=== PATIENT | male | born 1995 ===

== ENCOUNTER 2018-04-29 09:35 | Emergency (ER) | payer MEDICAID ==
[2018-04-29 10:13] VITALS: BP 130/78; PULSE 82; RESP 18; TEMP 99.2; O2SAT 99
--- NOTE | 2018-04-29 10:26 | C.PDOC ---
History Of Present Illness 22 y/o male presents to the ER complaining of right groin pain and swelling which has been present for the past 4 days. Patient states that he was concerned he might have a hernia. Patient denies having fever,chills, abdominal pain, and urinary symptoms. Time Seen by Provider: 04/29/18 09:50 Chief Complaint (Nursing): Abnormal Skin Integrity History Per: Patient History/Exam Limitations: no limitations Onset/Duration Of Symptoms: Days Current Symptoms Are (Timing): Still Present Severity: Moderate Past Medical History Reviewed: Historical Data, Nursing Documentation, Vital Signs Vital Signs: Last Vital Signs Temp 99.2 F 04/29/18 10:00 Pulse 82 04/29/18 10:00 Resp 18 04/29/18 10:00 BP 130/78 04/29/18 10:00 Pulse Ox 99 04/29/18 10:00 - Medical History PMH: No Chronic Diseases Surgical History: No Surg Hx Family History: States: No Known Family Hx - Social History Hx Tobacco Use: No Hx Alcohol Use: Yes Hx Substance Use: No - Immunization History Hx Tetanus Toxoid Vaccination: No Hx Influenza Vaccination: No Hx Pneumococcal Vaccination: No Review Of Systems Except As Marked, All Systems Reviewed And Found Negative. Constitutional: Negative for: Fever, Chills Genitourinary: Positive for: Other (right groin pain and swelling) Skin: Positive for: Other (redness swelling right groin) Physical Exam - Physical Exam Appears: Non-toxic, No Acute Distress Skin: Normal Color, Warm, Dry, Other (abrasion and erythema to right groin) Head: Atraumatic, Normacephalic Eye(s): bilateral: Normal Inspection Nose: Normal Oral Mucosa: Moist Neck: Supple Chest: Symmetrical Cardiovascular: Rhythm Regular Respiratory: Normal Breath Sounds, No Rales, No Rhonchi, No Wheezing Gastrointestinal/Abdominal: Normal Exam, Soft, No Tenderness, No Guarding, No Rebound Extremity: Normal ROM, Swelling (swelling to right groin) Neurological/Psych: Oriented x3, Normal Speech Gait: Steady ED Course And Treatment O2 Sat by Pulse Oximetry: 99 (RA) Pulse Ox Interpretation: Normal Progress Note: Treated with keflex 500 mg PO. In no distress, discharged in stable condition Reassessment Condition: Unchanged Medical Decision Making Medical Decision Making: Plan: --Keflex PO Updates: Patient has been discharged and instructed to follow up in clinic. Disposition Counseled Patient/Family Regarding: Diagnosis, Need For Followup, Rx Given - Disposition Referrals: 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 - Scribe Statement The provider has reviewed the documentation as recorded by the Scribe Alex Chao Provider Attestation All medical record entries made by the Scribe were at my direction and personally dictated by me. I have reviewed the chart and agree that the record accurately reflects my personal performance of the history, physical exam, medical decision making, and the department course for this patient. I have also personally directed, reviewed, and agree with the discharge instructions and disposition.
== END 2018-04-29 10:34 | disposition home or self-care (01) ==
LOC: C.ER 09:35
DX: L08.9 Local infection of the skin and subcutaneous tissue, unspecified (principal)